=== PATIENT | male | born 1965 | race Caucasian/White ===

== ENCOUNTER 2017-01-02 11:24 | Day surgery (SDC) | payer MEDICARE, OTHER ==
[~2017-01-02] VITALS: Ht 165.1 cm; Wt 75.6 kg
[2017-01-02 12:21] VITALS: Ht 165.1 cm; Wt 75.6 kg
[2017-01-02] MEDS ORDERED: [UNRECOGNIZED DRUG - OTHER] (12:41)
[2017-01-02] MEDS ORDERED: MELO-110 PO (12:41)
[2017-01-02 12:53] VITALS: BP 126/66; PULSE 58; RESP 15
[2017-01-02] MEDS ORDERED: FENTAnyl 50 MCG/ML VIAL ONE (14:01)
[2017-01-02] MEDS ORDERED: MIDAZOLAM 1 MG/ML 2 ML INJ ONE ×4 (14:01)
--- NOTE | 2017-01-29 08:11 | GILP ---
DATE OF PROCEDURE: PROCEDURE PERFORMED: 1. Esophagogastroduodenoscopy and biopsy. 2. Colonoscopy and biopsy. SURGEON: Dr. Morel. PREOPERATIVE DIAGNOSES: 1. Gastroesophageal reflux disease. Screening. POSTOPERATIVE DIAGNOSES: 1. Gastroesophageal reflux disease. 2. Gastritis. 3. Gastric mucosal biopsies were taken for Helicobacter pylori test. 4. Colonoscopy all the way to the cecum. 5. Small polyp on the ileocecal valve was removed using the biopsy forceps. 6. Diverticulosis of the colon. 7. Internal hemorrhoids. INDICATION: Mr. Kwan Andujar is a 51-year-old male patient, who has chronic heartburn not responding to therapy. He was scheduled for endoscopy and screening colonoscopy. The procedures and possible complications were well explained to the patient. The patient understood and consented to the procedures. The gastroscope was carefully introduced into the esophagus. Under direct vision, it was advanced to the stomach into the pylorus into the duodenal bulb, and descending duodenum. FINDINGS: Esophagus: Patient had gastroesophageal reflux disease. Stomach: Patient had gastritis. Gastric mucosal biopsies were taken for H pylori test. The colonoscope was carefully introduced in the rectum and under direct vision it was advanced all the way to the cecum. FINDINGS: The patient had a small polyp on the ileocecal valve and it was removed using the biopsy forceps. The patient was noted to have diverticulosis of the colon and internal hemorrhoids. The patient tolerated the procedures very well. There was no complication from the procedures. At the end of the procedure, he was awake with stable vital signs and he was discharged home in the care of his family. IMPRESSION: Please see postop diagnoses. PLAN: 1. Omeprazole 40 mg p.o. in the morning. 2. Await histopathology report. 3. Next screening colonoscopy in 10 years. Dictated By: MD VIKAS Montgomery/yoselin/isela /Document#: [id number] CC: Sharonda Morel MD;*[facility]*
== END 2017-01-02 17:27 | disposition home or self-care (01) ==
LOC: GIL 11:24
PROVIDERS: ATTEND Internal Medicine Gastroenterology
DX: K21.9 Gastro-esophageal reflux disease without esophagitis (principal); K29.70 Gastritis, unspecified, without bleeding; K63.5 Polyp of colon; K57.30 Diverticulosis of large intestine without perforation or abscess without bleeding; K64.8 Other hemorrhoids
CPT/HCPCS: 43239; 45380; 87081; 88305; J2250; J3010

== ENCOUNTER 2017-05-14 14:36 | Day surgery (SDC) | END 2017-05-14 21:42 | disposition home or self-care (01) | DX: T84.84XA Pain due to internal orthopedic prosthetic devices, implants and grafts, initial encounter (principal); Y83.8 Other surgical procedures as the cause of abnormal reaction of the patient, or of later complication, without mention of misadventure at the time of the procedure | CPT/HCPCS: 20680; 73610; 88300; J0690; J2175; J2405; J2795; J3010; L3260 ==